=== PATIENT | female | born 1980 | race American Indian/Alaskan Native ===

== ENCOUNTER 2017-02-12 12:35 | Outpatient (CLI) | payer BC ==
--- NOTE | 2017-02-13 08:07 | Ultrasound Report ---
OB ULTRASOUND History: Amenorrhea. Technique: Transabdominal ultrasound with Doppler interrogation. Gestation: Single Position: Transverse, head to maternal right Amniotic Fluid: Within normal limits RANDALL = not measured cm Placenta: Anterior Placental Grade: 0 Heart Rate: 151 BPM Cervical length: Not measured cm (Normal > 3 cm) x It is too early for a anatomical survey BPD: 2.7 cm = 14 w 6 d HC: 10.2 cm = 14 w 6 d AC: 8.6 cm = 14 w 6 d FL: 2.0 cm = 15 w 6 d HC/AC Ratio: 83.2 Cephalic Index: 1.19 US Gest. Age = 15 w 1 d EDC: 08/05/17
== END 2017-02-12 12:36 | disposition home or self-care (01) ==
LOC: US 12:35
PROVIDERS: ATTEND Family Medicine
DX: Z33.1 Pregnant state, incidental (principal); Z3A.15 15 weeks gestation of pregnancy
CPT/HCPCS: 76801